=== PATIENT | male | born 1960 | race Two or more races ===

== ENCOUNTER 2017-07-28 14:33 | Inpatient (IN) | payer OTHER ==
[~2017-07-28] VITALS: Ht 180.3 cm; Wt 99.5 kg
--- NOTE | 2017-07-28 14:53 | NUR ---
DR ALANIS AT BEDSIDE FOR EVAL
--- NOTE | 2017-07-28 14:56 | NUR ---
PT HERE FOR LLQ ABD PAIN AND U.C. FLARE UP FOR 6 WEEKS. PAIN NOW 6. PT HAS LONG HX OF U.C. HAS HAD DIARRHEA AND MINIMAL RECTAL BLEEDING. ABD SOFT AND TENDER TO PALP LLQ WITHOUT PALP MASSES PRESENT. PT CLAIMS HE SAW HIS PMD AND WAS NOT GIVEN MEDS OR TREATED IN ANY WAY AND. PT WAS GIVEN IRON TO TREAT POSSIBLE ANEMIA. PT APPEARS SLIGHTLY PALE UPON ARRIVAL AND DEHYDRATED. ALERT AND ORIENTED WITH VSS AND NO DISTRESS NOTED
[2017-07-28 15:10] LABS: BASOPHIL % 0.9 % (0-2); RED CELL DISTRIBUTION WIDTH 13.8 % (11.5-14.5)
--- NOTE | 2017-07-28 15:10 | NUR ---
FENTANYL ADMINISTERED SLOW IVP PER MD ORDER, PT VERBALIZES UNDERSTANDING OF MEDICATION PRIOR TO ADMINISTRATION. PT TO CT VIA PHILIP.
[2017-07-28 15:14] LABS: PLATELET COUNT 543 x10^3mcL (130-400)
[2017-07-28 15:17] LABS: CALCIUM 8.1 mg/dL (8.5-10.1); CARBON DIOXIDE 33.2 mmol/L (21-32); CHLORIDE SERUM 98 mmol/L (98-107); CREATININE SERUM 0.9 mg/dL (0.7-1.3); GFR1 > 60 mL/min; GLUCOSE SERUM 128 mg/dL (74-106); POTASSIUM SERUM 3.3 mmol/L (3.5-5.1); SODIUM SERUM 135 mmol/L (136-145)
[2017-07-28 15:22] LABS: ALKALINE PHOSPHATASE 71 U/L (46-116); ALT/SGPT 13 U/L (16-63); AST/SGOT 13 U/L (15-37); BILIRUBIN TOTAL 0.53 mg/dL (0.20-1.00); LIPASE 106 IU/L (73-393); TOTAL PROTEIN, SERUM 7.3 g/dL (6.4-8.2)
[2017-07-28 15:28] LABS: ALBUMIN 2.3 g/dL (3.4-5.0)
--- NOTE | 2017-07-28 16:04 | NUR ---
IV POTASSIUM INFUSION STARTED PER MD ORDER. SPOKE TO DR ALANIS REGARDING PTS POTASSIUM LEVEL OF 3.3, INSTRUCTED TO CARRY OUT K-RIDER ORDER. PT VERBALIZED UNDERSTANDING OF MEDICATION PRIOR TO ADMINISTRATION.
[2017-07-28] MEDS ORDERED: MI-ACID GAS REL80 MG PO (16:28)
[2017-07-28] MEDS ORDERED: ACETAMINOPHEN A1 TAB PO (16:29)
[2017-07-28] MEDS ORDERED: PREDNISONE20 MG PO (16:29)
[2017-07-28] MEDS ORDERED: BENTYL10 MG PO (16:30)
[2017-07-28] MEDS ORDERED: FERROUS SULFAT325 M2 PO (16:30)
[2017-07-28] MEDS ORDERED: BALSALAZIDE DI750 M1 PO (16:31)
--- NOTE | 2017-07-28 16:51 | NUR ---
REPORT GIVEN TO FINA ON TELE.
--- NOTE | 2017-07-28 17:11 | NUR ---
REC'D PT FROM ER VIA AVE. PT IS AAOX4. TELE #3 SB HR=59. RESP EVEN AND UNLABORED. NO SOB NOTED. ABD SOFT. BS ACTIVE X4. C/O / LLQ PAIN AND NAUSEA. PT REPORTS HAVING BLOODY DIARRHEA. IV NOTED TO LAC. K-RIDER CONTINUES TO INFUSE. ORIENTED PT TO CALL LIGHT. BED IN LOWEST POSITION. WILL ENDORSE TO PRIMARY RN.
[2017-07-28 17:14] LABS: MAGNESIUM 2.4 mg/dL (1.8-2.4)
[2017-07-28 17:16] LABS: FREE T4 1.32 ng/dL (0.76-1.46); FREE THYROXINE INDEX 2.9 ug/dL (1.4-4.5)
[2017-07-28 17:17] LABS: CHOLESTEROL/HDL RATIO 2.2; T3 TOTAL 0.74 ng/mL
[2017-07-28 17:24] VITALS: BP 147/82
--- NOTE | 2017-07-28 17:35 | NUR ---
RECEIVED REPORT FROM SHOSHANA CARSON, ASSUMING PT CARE RESPONSABILITY. PT C/O NAUSEA MEDICATED WITH ZOFRAN IVP ORDERED.
--- NOTE | 2017-07-28 18:00 | NUR ---
PT C/O ABD PAIN GREATER TO LLQ MEDICATED WITH DILAUDID PO ORDERED. WILL CONT TO MONITOR.
--- NOTE | 2017-07-28 18:46 | NUR ---
PT HAVING SEVERE PAIN. DR. MUNOZ PAGED TO OBTAIN ORDER FOR ANOTHER PAIN MEDICATION.
--- NOTE | 2017-07-28 20:00 | NUR ---
PT A/A/O X4. DENIES DIZZINESS AND HEADACHE. BREATH SOUNDS CLEAR. BREATHING EVEN AND UNLABORED ON ROOM AIR. DENIES CHEST PAIN AND PRESSURE, HR 55. BOWEL SOUNDS ACTIVE. C/O NAUSEA AND ABD PAIN WITH PAIN LEVEL OF 7 OUT OF 10. PT STATES "ITS BOTH TOLERABLE. ILL TAKE THE MEDICATIONS MAYBE LATER.". IV INTACT ON THE LAC INFUSING WITH NS AT 130 ML/HR AND K RIDER. MADE PT COMFORTABLE. PLACED CALL LIGHT WITH IN REACH. WILL CONTINUE TO MONITOR.
--- NOTE | 2017-07-28 20:53 | NUR ---
PT C/O PAIN. GAVE PT NORCO PO. PT TOLERATED IT WELL. WILL CONTINUE TO MONITOR.
[2017-07-28 21:47] VITALS: BP 121/61
--- NOTE | 2017-07-28 22:11 | NUR ---
PT C/O PAIN. GAVE PT DILAUDID PO. PT TOLERATED IT WELL. WILL CONTINUE TO MONITOR.
--- NOTE | 2017-07-28 22:52 | NUR ---
PT WAS GIVEN GI COCKTAIL FOR ABD PAIN. PT TOLERATED IT WELL. PT WITH DARK BROWN LOOSE STOOL. WILL CONTINUE TO MONITOR.
--- NOTE | 2017-07-29 00:58 | NUR ---
PT RESTING WITH EYES CLOSED. NO DISTRESS AND DISCOMFORT NOTED. WILL CONTINUE TO MONITOR.
--- NOTE | 2017-07-29 05:25 | NUR ---
PT C/O ABD PAIN. GAVE PT DILAUDID PO. PT TOLERATED IT WELL. IV INTACT AND INFUSING ORDERED. WILL ENDORSE TO THE AM NURSE ACCORDINGLY.
[2017-07-29 05:53] VITALS: BP 135/68
[2017-07-29 06:49] LABS: CALCIUM 8.5 mg/dL (8.5-10.1); CHLORIDE SERUM 103 mmol/L (98-107); CREATININE SERUM 0.9 mg/dL (0.7-1.3); GFR1 > 60 mL/min; GLUCOSE SERUM 120 mg/dL (74-106); POTASSIUM SERUM 4.4 mmol/L (3.5-5.1); SODIUM SERUM 140 mmol/L (136-145)
[2017-07-29 07:04] LABS: PLATELET COUNT 426 x10^3mcL (130-400)
[2017-07-29 07:05] LABS: BASOPHIL % 0 % (0-2)
--- NOTE | 2017-07-29 07:40 | NUR ---
RECEIVED PT IN BED A/A/OX4 DENIES SHANKS. RESP EVEN AND UNLABORED WITH CLEAR BS BILAT. DENIES ANY CP/PRESSURE AT THIS, SB ON TELE. NO EDEMA NOTED WITH IVF NS AT 130ML/HR TO LAC. ABD SOFT, TENDER TO TOUCH GREATER TO LLQ. REPORTS NAUSEA AND EPISODES OF DIARRHEA. VOIDING FREELY. AMBULATORY. CALL LIGHT IN REACH NEEDS ATTENDED TO.
--- NOTE | 2017-07-29 09:20 | NUR ---
PT C/O PAIN TO ABD 8/10 MEDICATED WITH PO DILAUDID AND ZOFRAN IVP FOR C/O NAUSEA. CALL LIGHT IN REACH NEEDS ATTENDED TO.
[2017-07-29 09:29] VITALS: BP 112/62
[2017-07-29 10:49] LABS: IRON 14 ug/dL (65-170); TOTAL IRON BINDING CAPACITY 173 ug/dL (250-450)
[2017-07-29 11:32] LABS: RED BLOOD CELLS 4.58 M/mm3 (4.52-5.90)
[2017-07-29 12:57] VITALS: BP 106/61
--- NOTE | 2017-07-29 13:40 | NUR ---
PT C/O ABD PAIN AT 7/10 MEDICATED WITH PO DILAUDID ORDERED, WILL CONT TO MONITOR.
[2017-07-29 16:52] LABS: UA SPECIFIC GRAVITY >=1.030 (1.005-1.035); microscopic required? YES; urine erythrocyte NEGATIVE (NEGATIVE)
[2017-07-29 17:09] LABS: AMPHETAMINE QUAL UR NONE DETECTED (NEG <=1000)
[2017-07-29 17:37] VITALS: BP 129/75
--- NOTE | 2017-07-29 17:38 | NUR ---
PT C/O PAIN TO ABD AT 6/10 MEDICATED WITH DILAUDID PO ORDERED.
--- NOTE | 2017-07-29 18:40 | NUR ---
PT RESTING COMFORTABLY AT THIS TIME. DENIES ANY DISCOMFORT. TOLERATED FULL LIQUID DINNER. IVF INFUSING CALL LIGHT IN REACH NEEDS ATTENDED TO.
--- NOTE | 2017-07-29 20:00 | NUR ---
PT A/A/O X4. DENIES DIZZINESS AND HEADACHE. BREATH SOUNDS CLEAR. BREATHING EVEN AND UNLABORED ON ROOM AIR. DENIES CHEST PAIN AND PRESSURE. BOWEL SOUNDS ACTIVE. NO C/O N/V AND C/O ABD DISCOMFORT WITH PAIN LEVEL OF 5/10. SWELLING NOTED ON THE LUE. PT STATED MY [place] [facility] IS SNUG AND THE H[facility]PITAL [facility]MB[facility]. DR. MUNOZ AWARE. IV INTACT ON THE LAC INFUSING WITH NS AT 130 ML/HR. MADE PT COMFORTABLE. PLACED CALL LIGHT WITH IN REACH. WILL CONTINUE TO MONITOR.
[2017-07-29 21:45] VITALS: BP 108/59
--- NOTE | 2017-07-29 21:47 | NUR ---
DR. MUNOZ SPOKE WITH THE PT. IV NS DECREASED FROM 130 ML/HR TO 10 ML/HR. GAVE PT LASIX IVP PER ORDER. WILL CONTINUE TO MONITOR.
--- NOTE | 2017-07-29 23:12 | NUR ---
PT STATED AFTER WALKING THE HALLWAYS, "THE SWELLING IS GETTING SMALLER, IT FEELS BETTER.'. WILL CONTINUE TO MONITOR.
[2017-07-30 06:09] VITALS: BP 110/60
[2017-07-30 06:40] LABS: RED CELL DISTRIBUTION WIDTH 14.1 % (11.5-14.5)
--- NOTE | 2017-07-30 06:46 | NUR ---
PT QUIET AND RESTING. NO C/O ABD PAIN AND NO SWELLING NOTED THUS FAR. IV INTACT AND INFUSING ORDERED. MADE PT COMFORTABLE. WILL ENDORSE TO THE AM NURSE ACCORDINGLY.
[2017-07-30 06:54] LABS: BASOPHIL % 0 % (0-2); PLATELET COUNT 421 x10^3mcL (130-400)
--- NOTE | 2017-07-30 07:30 | NUR ---
RECEIVED PT SITTING UP IN BED AWAKE AND ALERT. C/O ABDOMINAL PAIN 04/22. ASSURED PT THAT I WOULD GET SOMETHING TO HELP EASE PAIN AND TO TAKE DEEP BREATHES IN THE MEANTIME. RESPIRATIONS APPEAR EVEN AND UNLABORED. IV TO LAC APPEARS PATENT AND INFUSING WELL. CALL LIGHT WIHTIN REACH. BED IN LOWEST POSITION. WILL RETRIEVE PRN FOR PAIN MANAGEMENT. WILL CONTINUE TO MONITOR
--- NOTE | 2017-07-30 07:49 | NUR ---
PT C/O PAIN 8/10 TP THE ABDOMEN. ENCOURAGED TO TAKE DEEP BREATHES AND TO RELAX, REPOSITION FOR COMFORT. GIVEB PO DILAUDID PRN. CALL LIGHT WITHIN REACH, WILL CONTINUE TO MONITOR
--- NOTE | 2017-07-30 08:35 | NUR ---
AM ROUNDS DONE. PER DR. CORDON, PT WILL STAY FOR CONTINUED MONITORING AND PAIN CONTROL MANAGEMENT. TREATMENT WILL ALSO CONSULT WITH GI TO SEE APPROXIMATELY WHEN PT SHOULD DC. PT AWAKE AND ALERT AT THE TIME AND AGREES TO PLAN OF CARE. CALL LIGHT WITHIN REACH. WILL CONTINUE TO MONITOR
[2017-07-30 09:17] LABS: CALCIUM 8.2 mg/dL (8.5-10.1); CARBON DIOXIDE 33.2 mmol/L (21-32); CHLORIDE SERUM 98 mmol/L (98-107); CREATININE SERUM 0.9 mg/dL (0.7-1.3); GFR1 > 60 mL/min; GLUCOSE SERUM 138 mg/dL (74-106); MAGNESIUM 2.3 mg/dL (1.8-2.4); PHOSPHOROUS 4.2 mg/dL (2.5-4.9); POTASSIUM SERUM 4.4 mmol/L (3.5-5.1); SODIUM SERUM 137 mmol/L (136-145)
[2017-07-30 09:50] VITALS: BP 116/63
--- NOTE | 2017-07-30 11:05 | NUR ---
PT C/O PAIN 04/22 TO THE ABDOMEN. STATES THAT THE DILAUDID FELT LIKE IT WAS STARTING TO WORK FOR A LITTLE BUT THEN STOPPED AND THE PAIN STARTED TO CREEP UP AGAIN. SPOKE TO DR. BYRNE AND HE ORDERED A ONE TIME DOSE OF MORPHINE TO HELP WITH PAIN MANAGEMENT. MED WAS GIVEN. CALL LIGHT WITHIN REACH. WILL CONTINUE TO MONITOR
--- NOTE | 2017-07-30 12:08 | NUR ---
PAGED AND PAGE GATED DR. ADAMS. PT HAS SOME QUESTIONS IN REGARDS TO HIS MEDICATION AND WOULD LIKE TO SPEAK TO HIM
--- NOTE | 2017-07-30 13:24 | NUR ---
PT WAS PUT A REGULAR DIET BUT TO ULCERITVE COLLITIS, PT IS ONLY ABLE TO EAT CERTAIN FOOD. CALLED COMPACTOR DRIVER TO COME TALK TO PT. DR. ADAMS IS AWARE
--- NOTE | 2017-07-30 16:16 | NUR ---
PT WAS HAVING SEVERE PAIN STATING "15/10". WAS INITAILLY GIVEN DILAUDID PO, AND WAS ABLE TOP GET AN ORDER FOR MORPHINE 2MG IVP PRN. PT WAS NAUSEOUS AND DRY HEEVING AND WAS GIVEN ZOFRAN IVP. WAS IN THE PTS ROOM WHILE HE WAS HAVING A BM AND ASSISTED HIM BACK TO HIS BED. WHEN I LOOKED IN THE TOILET IT WAS MOSTLY BLOODY DISCHARGE. DR. ADAMS PAGED AND IS AWARE. HE WILL CONSULT WITH SENIOR RESIDENT. WILL CONTINUE TO MONITOR PT AT THIS TIME
[2017-07-30 17:33] VITALS: BP 138/72
--- NOTE | 2017-07-30 20:00 | NUR ---
RECEIVED PT IN BED, ALERT AND ORIENTED. DENIES HEADACHE/DIZZINESS, BUT COMPLAINING OF ABD. PAIN, 04/22, REQUESTING PAIN MED. AFEBRILE AND VITAL SIGNS STABLE. SR ON THE MONITOR, DENIES CHEST PAIN. RESP. EVEN AND UNLABORED. ON ROOM AIR, NO DISTRESS NOTED. IVF, NS AT 10ML/HR, INTACT AND INFUSING VIA LAC, SITE CLEAR. AMBULATORY. VOIDING FREELY. CALL LIGHT WITHIN REACH. WILL CONTINUE TO MONITOR.
--- NOTE | 2017-07-30 20:37 | NUR ---
MEDICATED WITH DILAUDID 2MG PO ORDERED FOR PAIN. ABD. SOFT, NON DISTENDED, NO N/V NOTED. WILL CONTINUE TO MONITOR.
--- NOTE | 2017-07-30 21:41 | NUR ---
PT STATES PAIN RELIEF. RESTING QUIETLY IN BED. WILL CONTINUE TO MONITOR.
[2017-07-30 21:48] VITALS: BP 112/63
--- NOTE | 2017-07-31 01:11 | NUR ---
NO COMPLAINTS NOTED AT THIS TIME. EYES CLOSED, APPEARS ASLEEP, EASILY AROUSABLE. NO DISTRESS NOTED. WILL CONTINUE TO MONITOR.
[2017-07-31 05:11] VITALS: BP 99/51
[2017-07-31 06:13] LABS: RED CELL DISTRIBUTION WIDTH 13.7 % (11.5-14.5)
[2017-07-31 06:32] LABS: CALCIUM 8.4 mg/dL (8.5-10.1); CARBON DIOXIDE 32.6 mmol/L (21-32); CHLORIDE SERUM 98 mmol/L (98-107); CREATININE SERUM 0.9 mg/dL (0.7-1.3); GFR1 > 60 mL/min; GLUCOSE SERUM 142 mg/dL (74-106); MAGNESIUM 2.5 mg/dL (1.8-2.4); PHOSPHOROUS 3.7 mg/dL (2.5-4.9); SODIUM SERUM 136 mmol/L (136-145)
--- NOTE | 2017-07-31 06:41 | NUR ---
AFEBRILE AND VITAL SIGNS STABLE. SLEPT WELL DURING THE NIGHT, NO SIGNIFICANT CHANGE NOTED IN PT,S CONDITION. RESP. EVEN AND UNLABORED. NO DISTRESS NOTED. IVF INTACT AND INFUSING WELL, SITE CLEAR. KEPT COMFORTABLE. NO COMPLAINTS NOTED AT THIS TIME. WILL ENDORSE TO INCOMING NURSE.
[2017-07-31 07:10] LABS: BASOPHIL % 0 % (0-2); PLATELET COUNT 456 x10^3mcL (130-400)
--- NOTE | 2017-07-31 07:41 | NUR ---
RECEIVED PT FROM NIGHT NURSE IN NO ACUTE DISTRESS. PT ASLEEP IN BED, RESPIRATIONS EVEN AND UNLABORED ON RA. IVF INFUSING AT BEDSIDE. BED IN LOWEST POSITION, CALL LIGHT WITHIN REACH. WILL CONTINUE TO MONITOR.
[2017-07-31 10:13] VITALS: BP 117/64
--- NOTE | 2017-07-31 11:29 | NUR ---
PT C/O 04/22 LLQ PAIN, GIVEN DILAUDID ORDERED. PRIMARY RN CHAN MADE AWARE.
--- NOTE | 2017-07-31 13:52 | NUR ---
PT RESTING IN BED IN NO ACUTE DISTRESS. RESPIRATIONS EVEN AND UNLABORED ON RA. AAOX4. DENIES PAIN AT THIS TIME. BED IN LOWEST POSITION. CALL LIGHT WITHIN REACH. WILL CONTINUE TO MONITOR.
[2017-07-31 14:00] VITALS: BP 117/65
[2017-07-31 17:11] VITALS: BP 108/64
--- NOTE | 2017-07-31 18:45 | NUR ---
PT RESTING IN BED IN NO ACUTE DISTRESS. RESPIRATIONS EVEN AND UNLABORED ON RA. AAOX4. IVF INFUSING AT BEDSIDE. DENIES PAIN AT THIS TIME. BED IN LOWEST POSITION. CALL LIGHT WITHIN REACH. WILL ENDORSE TO ONCOMING SHIFT
--- NOTE | 2017-07-31 19:11 | NUR ---
AOX4. TELE #3, NSR. LUNGS CLEAR ON RA. PULSES PALPABLE, NO EDEMA. BOWEL SOUNDS ACTIVE. PT C/O BLOODY DIARRHEA. SKIN INTACT. DENIES PAIN AT THIS TIME. NS @ 10 ML/HR TO LEFT AC, NO REDNESS OR SWELLING. BED IN LOW POSITION, CALL LIGHT IN REACH. INSTRUCTED TO CALL FOR ASSISTANCE.
[2017-07-31 21:34] VITALS: BP 126/68
--- NOTE | 2017-08-01 03:21 | NUR ---
BREATHING EVEN AND UNLABORED. NO ACUTE DISTRESS NOTED. WILL CONTINUE TO MONITOR.
[2017-08-01 05:36] VITALS: BP 153/72
--- NOTE | 2017-08-01 06:15 | NUR ---
C/O ABD PAIN 03/22. MEDICATED PER EMAR WITH TORADOL. NO OTHER ACUTE CHANGES DURING SHIFT. WILL ENDORSE TO ONCOMING RN.
[2017-08-01 06:47] LABS: BASOPHIL % 0.1 % (0-2); RED CELL DISTRIBUTION WIDTH 13.9 % (11.5-14.5)
[2017-08-01 07:25] LABS: PLATELET COUNT 450 x10^3mcL (130-400)
[2017-08-01 07:43] LABS: CALCIUM 8.3 mg/dL (8.5-10.1); CARBON DIOXIDE 34.9 mmol/L (21-32); CHLORIDE SERUM 98 mmol/L (98-107); CREATININE SERUM 0.8 mg/dL (0.7-1.3); GFR1 > 60 mL/min; GLUCOSE SERUM 111 mg/dL (74-106); MAGNESIUM 2.4 mg/dL (1.8-2.4); PHOSPHOROUS 3.2 mg/dL (2.5-4.9); SODIUM SERUM 136 mmol/L (136-145)
[2017-08-01 09:42] VITALS: BP 143/68
[2017-08-01 12:59] VITALS: BP 113/63
[2017-08-01 17:10] VITALS: BP 100/68
--- NOTE | 2017-08-01 20:20 | NUR ---
RECEIVED PT FROM PREVIOUS SHIFT NURSE. PT AOX4. TELE #3, SR, HR 89. DENIES CP/PRESSURE. PULSES PRESENT, NO EDEMA NOTED. LUNG SOUNDS CLEAR, ON RA. DENIES SOB/DIFFICULTY BREATHING. BOWEL SOUNDS ACTIVE. VOIDS FREELY. AMBULATORY. SKIN INTACT. IV IN LAC, INTACT AND PATENT. BED IN LOWEST POSITION. CALL LIGHT WITHIN REACH. WILL CONTINUE TO MONITOR.
[2017-08-01 22:21] VITALS: BP 129/67
--- NOTE | 2017-08-02 01:40 | NUR ---
PT RESTING IN BED. RR EVEN AND UNLABORED. NO ACUTE DISTRESS NOTED. CALL LIGHT WITHIN REACH. BED IN LOWEST POSITION. WILL CONTINUE TO MONITOR.
[2017-08-02 06:35] VITALS: BP 114/61
[2017-08-02 07:05] LABS: BASOPHIL % 0.2 % (0-2)
--- NOTE | 2017-08-02 07:15 | NUR ---
PT ON HIGH FOWLERS. AWAKE, COOPERATIVE OF CARE. NO DISTRESS NOTED. IV ACCESS TO LAC #20. CALL LIGHT WITHIN REACH.
[2017-08-02 07:23] LABS: CALCIUM 8.2 mg/dL (8.5-10.1); CARBON DIOXIDE 34.1 mmol/L (21-32); CHLORIDE SERUM 97 mmol/L (98-107); CREATININE SERUM 0.8 mg/dL (0.7-1.3); GFR1 > 60 mL/min; GLUCOSE SERUM 117 mg/dL (74-106); MAGNESIUM 2.3 mg/dL (1.8-2.4); PHOSPHOROUS 3.3 mg/dL (2.5-4.9); POTASSIUM SERUM 4.4 mmol/L (3.5-5.1); SODIUM SERUM 134 mmol/L (136-145)
[2017-08-02 08:35] LABS: PLATELET COUNT 452 x10^3mcL (130-400)
--- NOTE | 2017-08-02 08:40 | NUR ---
PT C/O PAIN 8/10 IMPATIENTLY ASKING FOR MEDICATIONS. PAIN ABD LLQ, LUQ. MEDICATED PER EMAR. CALL LIGHT WITHIN REACH. WILL CONTINUE TO MONITOR.
[2017-08-02] MEDS ORDERED: KETOROLAC TROME10 MG PO (09:01)
--- NOTE | 2017-08-02 09:15 | NUR ---
STOOL SAMPLE COLLECTED. SENT TO LAB.
[2017-08-02 09:37] VITALS: BP 139/76
--- NOTE | 2017-08-02 10:10 | NUR ---
PT STATES PAIN IS STARTING BACK UP. EXPLAINED PAIN MANAGEMENT REGIMEN, PT REQUESTED TO SPEAK TO . DR. ADAMS CONTACTED. CALL LIGHT WITHIN REACH.
[2017-08-02 12:58] VITALS: BP 118/68
[2017-08-02] MEDS ORDERED: PERCOCET1 TAB PO (13:01)
[2017-08-02 13:09] VITALS: BP 111/59; BP 118/68
--- NOTE | 2017-08-02 14:20 | NUR ---
RECEIVED VALUE FROM LAB: PT POSITIVE FOR C-DIFF. DR. CRUZ MADE AWARE OF RESULT. ISOLATION PRECAUTIONS IN PLACE.
[2017-08-02 17:45] VITALS: BP 113/71
--- NOTE | 2017-08-02 18:00 | NUR ---
PASSED AFTERNOON MEDS. PT TOLERATED WELL. STATES PAIN IS 5/10. IV ACCESS TO LAC #20. PATENT. CALL LIGHT WITHIN REACH.
--- NOTE | 2017-08-02 19:40 | NUR ---
PT FOUND IN BED, A/O X4, VERBALLY RESPONSIVE. CALM AT THIS TIME. LUNGS CLEAR TO AUSCULTATION, ON ROOM AIR. NO C/O SOB AT THIS TIME. ON TELE 3, NSR WITH HR SUSTAINING IN 60S. NO C/O CHEST PAIN. BOWEL SOUNDS ACTIVE IN ALL 4 QUADRANTS, C/O PAIN IN ABD BUT STATES HE DOES NOT NEED ANYTHING FOR IT AT THIS TIME. AMBULATES BY SELF, NO C/O WEAKNESS AT THIS TIME. IV TO LAC, SALINE LOCKED. ALL NEEDS MET AT THIS TIME, BED IN LOWEST POSITION, CALL LIGHT IN REACH, WILL CONTINUE TO MONITOR.
[2017-08-02 22:32] VITALS: BP 103/62
--- NOTE | 2017-08-03 05:21 | NUR ---
PT IS AWAKE AND VERBAL RESPONSIVE, DENY ANY RESPIRATORY DISTRESS, DENY ANY PAIN OR DISCOMFORT, IV AT LEFT AC, DRESSING INTACT, NO LEAKING, NO INFILTRATION. ALL ADLS ASSIST, ALL NEED MET, CALL LIGHT IN REACH, WILL CONTINUE TO MONITOR.
[2017-08-03 05:40] VITALS: BP 112/60
[2017-08-03 06:24] LABS: BASOPHIL % 0.1 % (0-2)
[2017-08-03 06:32] LABS: PLATELET COUNT 478 x10^3mcL (130-400)
[2017-08-03 06:34] LABS: CALCIUM 8.4 mg/dL (8.5-10.1); CARBON DIOXIDE 34.6 mmol/L (21-32); CHLORIDE SERUM 96 mmol/L (98-107); CREATININE SERUM 0.9 mg/dL (0.7-1.3); GFR1 > 60 mL/min; GLUCOSE SERUM 126 mg/dL (74-106); MAGNESIUM 2.4 mg/dL (1.8-2.4); PHOSPHOROUS 4.2 mg/dL (2.5-4.9); POTASSIUM SERUM 4.7 mmol/L (3.5-5.1); SODIUM SERUM 133 mmol/L (136-145)
[2017-08-03 08:15] VITALS: BP 111/59
--- NOTE | 2017-08-03 09:24 | NUR ---
PT ON BED, AWAKE, ALERT, AND ORIENTED. HAS NO COMPLAINT OF PAIN, SOB, OR DIZZINESS. RESPONDS WELL TO QUESTION AND ANSWER. ACTIVE BOWEL SOUNDS NOTED. NON DISTENDED ABDOMEN. CLEAR [place] LUNG FIELD, SYMMETRICAL CHEST EXPANSION AND UNLABORED. SKIN INTACT. SIDE RAILS UP, CALL LIGHT WITHIN REACH, WILL CONTINUE TO MONITOR
[2017-08-03] MEDS ORDERED: ZOF4 PO (14:08)
[2017-08-03] MEDS ORDERED: SIMETHICONE80 MG CH (14:08)
[2017-08-03] MEDS ORDERED: VANCOCIN125 MG PO (14:08)
--- NOTE | 2017-08-03 16:29 | NUR ---
D/C INSTRUCTION DONE. IV AND TELE HAS BEEN D/C. PT WAITING FOR INSURANCE VERIFICATION
--- NOTE | 2017-08-03 16:39 | NUR ---
PT RECEIVED HIS OWN PERSONAL RX MED. BALSALAZIDE
--- NOTE | 2017-08-03 17:08 | NUR ---
PT WAS MADE AWARE THAT HIS MEDICATION VERIFICATION WAS APPROVED AND WILL BE ABLE TO TEMPLATE WORKER MEDS TOMORROW
--- NOTE | 2017-08-03 17:34 | NUR ---
PT STATED PHARMACY HAS OKIED AND VERIFIED THE MEDICATION. WILL CONTINUE TO MONITOR
--- NOTE | 2017-08-03 19:19 | NUR ---
PT IN BED AWAKE, ALERT, AND ORIENTED. WATCHING TV. PT STATED HE FELT DIZZY 3 TIMES WHILE TAKING A SHOWER. PT STATED IM RECOPERATING AND AIMING AT 1999 TO LEAVE
--- NOTE | 2017-08-03 19:22 | NUR ---
REPORT FROM JENNIFER FERNANDEZ,HE WILL BE DC AT 8 PM,CAR IN PARKING LOT,DROVE HIMSELF HERE.NO TELE,NO IV,READY TO GO,ALL PAPERWORKS DONE BY DAY SHIFT ALREADY,CHARGE NURSE MILLIE AWARE OF ALL OF THIS,ALSO RA NURSE AWARE.
--- NOTE | 2017-08-03 19:44 | NUR ---
MANGLE TENDER CLOTH,REMINDED TO BRING WHEELCHAIR TO THE ROOM SO PATIENT WILL TRY TO GET READY,MARCI WATERMAN,8 PM.
--- NOTE | 2017-08-03 19:53 | NUR ---
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
--- NOTE | 2017-08-03 19:54 | NUR ---
CHARGE NURSE SAMANTHA FERREIRA ALSO IN THE ROOM TALKING TO HIM,MARCI.
--- NOTE | 2017-08-03 20:05 | NUR ---
SECURITY OUTSIDE ROOM,PATIENT AWARE,NEED TO GET READY AND DC 2000 SCHEDULE.
--- NOTE | 2017-08-03 20:10 | NUR ---
DC VIA WHEELCHAIR BY LUCI.
== END 2017-08-03 20:10 | disposition home or self-care (01) | DRG 248 ==
LOC: ED 14:33 → MU 16:22 → DU 16:22 → MU 08-03 09:01
PROVIDERS: Emergency Medicine; Family Medicine Sports Medicine; ADMIT Family Medicine
DX: A04.72 Enterocolitis due to Clostridium difficile, not specified as recurrent (principal); N17.0 Acute kidney failure with tubular necrosis; E87.6 Hypokalemia; R73.03 Prediabetes; E44.1 Mild protein-calorie malnutrition; Z68.30 Body mass index [BMI] 30.0-30.9, adult; Z88.8 Allergy status to other drugs, medicaments and biological substances; Z91.010 Allergy to peanuts; E83.39 Other disorders of phosphorus metabolism; D64.9 Anemia, unspecified
CPT/HCPCS: 82962; 84439; J1885; J1940; J2270; J2405; J2920; J3010; J3480; J3490; J7030; J7042; J7512

== ENCOUNTER 2017-08-03 20:19 | Inpatient (IN) | payer OTHER ==
[~2017-08-03] VITALS: Ht 180.3 cm; Wt 100.7 kg
[~2017-08-03 20:19] MED LIST: ACETAMINOPHEN A1 TAB PO; BALSALAZIDE DI750 M1 PO; BENTYL10 MG PO; FERROUS SULFAT325 M2 PO; KETOROLAC TROME10 MG PO; MI-ACID GAS REL80 MG PO; PERCOCET1 TAB PO; PREDNISONE20 MG PO; SIMETHICONE80 MG CH; VANCOCIN125 MG PO; ZOF4 PO
[2017-08-03 21:45] LABS: CALCIUM 8.5 mg/dL (8.5-10.1); CARBON DIOXIDE 30.2 mmol/L (21-32); CHLORIDE SERUM 94 mmol/L (98-107); CREATININE SERUM 1.1 mg/dL (0.7-1.3); GFR1 > 60 mL/min; GLUCOSE SERUM 131 mg/dL (74-106); POTASSIUM SERUM 4.2 mmol/L (3.5-5.1); SODIUM SERUM 132 mmol/L (136-145)
[2017-08-03 21:50] LABS: BASOPHIL % 0.3 % (0-2); RED CELL DISTRIBUTION WIDTH 13.9 % (11.5-14.5)
[2017-08-03 21:58] LABS: PLATELET COUNT 599 x10^3mcL (130-400)
[2017-08-03 22:00] LABS: ALKALINE PHOSPHATASE 75 U/L (46-116); ALT/SGPT 11 U/L (16-63); AST/SGOT 15 U/L (15-37); BILIRUBIN TOTAL 0.73 mg/dL (0.20-1.00); LIPASE 75 IU/L (73-393)
[2017-08-03 22:01] LABS: ALBUMIN 1.8 g/dL (3.4-5.0)
[2017-08-04] VITALS (8 sets, daily range): BP systolic 98–122; BP diastolic 49–77
[2017-08-04 02:19] LABS: CHOLESTEROL/HDL RATIO 2.5; MAGNESIUM 2.1 mg/dL (1.8-2.4)
[2017-08-04 02:26] LABS: T3 TOTAL 0.73 ng/mL
[2017-08-04 02:30] LABS: FREE T4 1.63 ng/dL (0.76-1.46)
[2017-08-04 06:18] LABS: RED CELL DISTRIBUTION WIDTH 13.8 % (11.5-14.5)
[2017-08-04 06:45] LABS: CALCIUM 7.4 mg/dL (8.5-10.1); CARBON DIOXIDE 28.7 mmol/L (21-32); CHLORIDE SERUM 101 mmol/L (98-107); CREATININE SERUM 0.9 mg/dL (0.7-1.3); GFR1 > 60 mL/min; GLUCOSE SERUM 117 mg/dL (74-106); PHOSPHOROUS 3.4 mg/dL (2.5-4.9); POTASSIUM SERUM 3.9 mmol/L (3.5-5.1); SODIUM SERUM 134 mmol/L (136-145)
[2017-08-04 06:55] LABS: BASOPHIL % 0 % (0-2); PLATELET COUNT 446 x10^3mcL (130-400)
[2017-08-04 10:27] LABS: microscopic required? YES; urine erythrocyte NEGATIVE (NEGATIVE)
[2017-08-04 10:28] LABS: AMPHETAMINE QUAL UR NONE DETECTED (NEG <=1000)
[2017-08-05 05:41] VITALS: BP 111/57
[2017-08-05 06:19] LABS: BASOPHIL % 0.1 % (0-2); RED CELL DISTRIBUTION WIDTH 14.3 % (11.5-14.5)
[2017-08-05 06:20] LABS: CALCIUM 7.8 mg/dL (8.5-10.1); CHLORIDE SERUM 102 mmol/L (98-107); CREATININE SERUM 0.7 mg/dL (0.7-1.3); GFR1 > 60 mL/min; GLUCOSE SERUM 90 mg/dL (74-106); MAGNESIUM 2.1 mg/dL (1.8-2.4); PHOSPHOROUS 3.7 mg/dL (2.5-4.9); POTASSIUM SERUM 3.9 mmol/L (3.5-5.1); SODIUM SERUM 136 mmol/L (136-145)
[2017-08-05 06:54] LABS: PLATELET COUNT 402 x10^3mcL (130-400)
[2017-08-05 10:05] VITALS: BP 127/61
[2017-08-05 17:51] VITALS: BP 136/66
[2017-08-05 20:00] VITALS: BP 132/66
[2017-08-06 05:38] VITALS: BP 112/60
[2017-08-06 06:30] LABS: BASOPHIL % 0.3 % (0-2)
[2017-08-06 06:48] LABS: RED CELL DISTRIBUTION WIDTH 14.3 % (11.5-14.5)
[2017-08-06 06:51] LABS: PLATELET COUNT 421 x10^3mcL (130-400)
[2017-08-06 07:10] LABS: CALCIUM 8.1 mg/dL (8.5-10.1); CARBON DIOXIDE 28.9 mmol/L (21-32); CHLORIDE SERUM 104 mmol/L (98-107); CREATININE SERUM 0.8 mg/dL (0.7-1.3); GFR1 > 60 mL/min; GLUCOSE SERUM 107 mg/dL (74-106); MAGNESIUM 2.3 mg/dL (1.8-2.4); PHOSPHOROUS 3.1 mg/dL (2.5-4.9); POTASSIUM SERUM 3.9 mmol/L (3.5-5.1); SODIUM SERUM 136 mmol/L (136-145)
[2017-08-06 09:38] VITALS: BP 117/61
[2017-08-06 17:42] VITALS: BP 111/64
[2017-08-06 20:36] VITALS: BP 114/60
[2017-08-07 05:26] VITALS: BP 116/67
[2017-08-07 07:39] LABS: CARBON DIOXIDE 27.7 mmol/L (21-32); CHLORIDE SERUM 103 mmol/L (98-107); CREATININE SERUM 0.8 mg/dL (0.7-1.3); GFR1 > 60 mL/min; GLUCOSE SERUM 126 mg/dL (74-106); MAGNESIUM 2.2 mg/dL (1.8-2.4); PHOSPHOROUS 3.1 mg/dL (2.5-4.9); SODIUM SERUM 136 mmol/L (136-145)
[2017-08-07] MEDS ORDERED: NOVAPLUS VANCO250 MG PO (09:27)
[2017-08-07] MEDS ORDERED: LAC PO (09:28)
[2017-08-07 09:55] LABS: BASOPHIL % 0.2 % (0-2); PLATELET COUNT 434 x10^3mcL (130-400); RED CELL DISTRIBUTION WIDTH 13.9 % (11.5-14.5)
[2017-08-07 10:15] VITALS: BP 120/70
[2017-08-07 10:36] VITALS: BP 120/70
[2017-08-07 12:02] VITALS: Ht 180.3 cm; Wt 100.7 kg
[2017-08-07] MEDS ORDERED: MECLIZINE HYD12.5 MG PO (12:49)
== END 2017-08-07 15:40 | disposition home or self-care (01) | DRG 720 ==
LOC: ED 20:19 → DU 08-04 00:28 → MU 08-05 10:57
PROVIDERS: Emergency Medicine; Family Medicine; ADMIT Family Medicine
DX: A41.9 Sepsis, unspecified organism (principal); E43 Unspecified severe protein-calorie malnutrition; E11.22 Type 2 diabetes mellitus with diabetic chronic kidney disease; A04.72 Enterocolitis due to Clostridium difficile, not specified as recurrent; E87.1 Hypo-osmolality and hyponatremia; D69.6 Thrombocytopenia, unspecified; K51.90 Ulcerative colitis, unspecified, without complications; Z88.8 Allergy status to other drugs, medicaments and biological substances; D64.9 Anemia, unspecified; Z68.30 Body mass index [BMI] 30.0-30.9, adult; Z91.010 Allergy to peanuts; R65.20 Severe sepsis without septic shock; Z82.0 Family history of epilepsy and other diseases of the nervous system; N18.9 Chronic kidney disease, unspecified; E83.51 Hypocalcemia
CPT/HCPCS: 82962; 83880; 84439; G0378; J2543; J2916; J3490; J7030; J7050; J7512; J8597; Q0092